=== PATIENT | male | born 1990 | race African-American/Black ===

== ENCOUNTER 2022-09-06 16:13 | Emergency (ER) | payer MEDICAID ==
[~2022-09-06] VITALS: Ht 274.3 cm; Wt 95.0 kg
[2022-09-06] MEDS ORDERED: ETOMIDATE (2MG/ML) 20ML VIAL IV ONE ×2 (16:23→17:45)
[2022-09-06] MEDS ORDERED: MIDAZOLAM HCL 5 MG/ML-1ML VIAL ONE (16:24)
[2022-09-06] MEDS ORDERED: MIDAZOLAM DRIP 50 mg/50mL 50 ML IV ONE ×2 (16:24→17:39)
[2022-09-06] MEDS ORDERED: NOREPINEPHRINE 8 MG/250ML KIT 250 ML IV ONE (16:28)
[2022-09-06] MEDS ORDERED: PROPOFOL 100 ML IV ONE (16:52)
[2022-09-06] MEDS ORDERED: ceFAZolin 2 GM/D5W100ml 100 ML IV ONE (17:30)
[2022-09-06] MEDS ORDERED: TETANUS-DIPTH-ACEL PERTUSSIS 0.5ML SYR Tdap IM ONE (17:30)
[2022-09-06 17:33] LABS: Basophils # (auto) 0 10 ^3/uL (0-0.2); Basophils % (auto) 0.5 % (0.0-2.0); Eosinophils # (auto) 0 10 ^3/uL (0-0.8); Eosinophils % (auto) 0.8 % (0.0-7.0); Hematocrit 34.4 % (41.0-53.0); Hemoglobin 11.8 g/dL (13.5-17.5); Lymphocytes # (auto) 0.9 10 ^3/uL (0.4-5.4); Lymphocytes % (auto) 18.3 % (10.0-50.0); Mean Corpuscular Hemoglobin 34.5 pg (28.0-32.0); Mean Corpuscular Hgb Conc. 34.3 g/dL (32.0-36.0); Mean Corpuscular Volume 100.6 fL (80.0-100.0); Monocytes # (auto) 0.4 10 ^3/uL (0-1.3); Monocytes % (auto) 7.4 % (0.0-12.0); Neutrophils # (auto) 3.7 10 ^3/uL (1.6-8.6); Nucleated Red Blood Cells % 0.1 %; Red Blood Cells 3.42 10^6/uL (4.5-5.90); Red Cell Distribution Width 14.6 % (11.8-14.3); White Blood Cell 5.1 10^3/uL (4.4-10.8)
[2022-09-06] MEDS ORDERED: NOREPINEPHRINE 8 MG/250ML KIT 250 ML IV SCH (17:45)
[2022-09-06] MEDS ORDERED: MIDAZOLAM HCL 5 MG/ML-1ML VIAL IV ONE (17:45)
[2022-09-06] MEDS ORDERED: PROPOFOL 100 ML IV SCH (17:45)
[2022-09-06] MEDS ORDERED: LACTATED RINGER'S 2,000 ML IV ONE (17:45)
[2022-09-06] MEDS ORDERED: MIDAZOLAM DRIP 50 mg/50mL 50 ML IV SCH (17:45)
[2022-09-06 17:51] LABS: INR 1.17 (0.9-1.15)
[2022-09-06 18:03] VITALS: BP 113/79
[2022-09-06 18:03] LABS: Albumin 2.2 g/dL (3.4-5.0); BUN/Creatinine Ratio 5.8 (10.0-20.0); Calcium 7.2 mg/dL (8.5-10.1); Potassium 3.4 mmol/L (3.5-5.1)
[2022-09-06 18:12] LABS: Bilirubin, Total 0.2 mg/dL (0.2-1.0); Total Protein 4.4 g/dL (6.4-8.2)
== END 2022-09-06 18:24 | disposition short-term general hospital (02) ==
LOC: ER 16:13
DX: S27.1XXA Traumatic hemothorax, initial encounter (principal); S01.01XA Laceration without foreign body of scalp, initial encounter; S51.811A Laceration without foreign body of right forearm, initial encounter; S09.8XXA Other specified injuries of head, initial encounter; F17.210 Nicotine dependence, cigarettes, uncomplicated; F12.10 Cannabis abuse, uncomplicated; R06.89 Other abnormalities of breathing; Z79.899 Other long term (current) drug therapy; W26.8XXA Contact with other sharp object(s), not elsewhere classified, initial encounter; Y93.89 Activity, other specified; Y92.89 Other specified places as the place of occurrence of the external cause; Y99.8 Other external cause status
CPT/HCPCS: 31500; 32551; 36415; 36430; 36556; 36600; 71045; 80053; 82805; 85025; 85610; 85730; 86850; 86900; 86901; 86920; 90471; 90715; 96365; 99291; J2250; J2704; P9016